=== PATIENT | female | born 2005 | race Caucasian/White ===

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

== ENCOUNTER 2023-01-19 18:36 | Emergency (ER) | payer OTHER, SELFPAY ==
[2023-01-19 18:43] VITALS: BP 120/70; PULSE 68; RESP 16; TEMP 36.6; O2SAT 99
--- NOTE | 2023-01-19 19:12 | ED.EYEPROB ---
HPI - Eye Problem General Chief complaint: Eye Problems Stated complaint: Right Eye Irritation Time Seen by Provider: 01/19/23 19:00 Source: patient, RN notes reviewed and old records reviewed Mode of arrival: ambulatory Limitations: no limitations History of Present Illness HPI Narrative: 17 year female who presents to [facility] care with complaints of right eye redness, irritation, and crusty drainage noted this morning. Patient denies any sinus congestion or any sinus drainage,denies any cough or any other ill symptoms with no fevers noted. Patient denies any acute pain to her right eye or any visual changes . chief complaint: eye redness Onset (ago): day(s) (today) Onset description: awoke with symptoms Location: right eye Eye Symptoms: redness, itching and discharge Severity scale (1-10): 1 Treatments Prior to Arrival: other (warm compress to wash eye) Related Data Home Medications Medication Instructions Recorded Confirmed escitalopram oxalate 10 mg tablet 20 mg DAILY 02/21/19 01/19/23 levonorgestrel 21 mcg/24 hours (8 See Rx Instructions .Route .COMPLEX 06/11/21 01/19/23 yrs) 52 mg intrauterine device (Mirena) methylphenidate HCl 36 mg 36 mg PO DAILY 12/07/22 01/19/23 tablet,extended release 24 hr Allergies Allergy/AdvReac Type Severity Reaction Status Date / Time cat dander AdvReac Mild Sneezing Verified 12/07/22 15:42 Review of Systems Review of Systems: CONSTITUTIONAL: Denies fever, chills, or sweats. EYES: Denies visual changes. Reports redness,, irritation, itching and crusting of her right eye. ENT: Denies rhinorrhea, congestion, sore throat, or otalgia. CARDIOVASCULAR: Denies chest pain, palpitations, or edema. RESPIRATORY: Denies cough or dyspnea. SKIN: Denies rash or itching. NEUROLOGIC: Denies headache All systems reviewed & are unremarkable except as noted in HPI and below PMFSH Past Medical History Medical History ADHD (attention deficit hyperactivity disorder) Anxiety and depression Surgical History Surgical History No significant past surgical history Social History Social History (Reviewed 12/07/22 @ 16:15 by FRANCIE Loya Smoking status: Never smoker Alcohol intake: never Substance use: never Living arrangements: with family Gender identity (if verbalized by the patient): Female Comments At time of signature, agree with nursing past medical, surgical, social and family history. There is no relevant family history pertinent to the presenting complaint Exam Narrative: GENERAL: Well-appearing, well-nourished, and in no acute distress. HEAD: Normocephalic, atraumatic. EYES: PERRLA and EOMI. Upper and lower eyelids unremarkable. No periorbital cellulitis noted. Sclera and conjunctivae injected right eye. Patient reports itching of right eye, denies any visual changes or any sharp pain right eye, mucoid drainage with crusting on lashes this morning. ENT: Nares clear, no rhinorrhea or epistaxis. Mucous membranes moist. NECK: Supple. no lymphadenopathy CHEST: Clear to auscultation. No respiratory distress. HEART: Regular rate and rhythm. No murmur heard. Normal peripheral pulses. SKIN: Warm, dry, no rash. NEURO: No focal deficits. Alert and oriented x3. Course Course Emergency Course: Patient is aware of diagnosis, understands and agrees to treatment plan. Anticipatory guidance given. Patient agrees to follow-up as directed and is aware of reasons to seek care at the emergency department. Portions of this record may have been created with voice recognition software Level of Care: Express Care Visit Vital Signs Vital signs: Vital Signs Temperature 36.6 C 01/19/23 18:43 Pulse Rate 68 01/19/23 18:43 Respiratory Rate 16 01/19/23 18:43 Blood Pressure 120/70 01/19/23 18:43 Pulse Oximetry 99 01/19/23 18:43 Oxygen De
== END 2023-01-19 19:25 | disposition home or self-care (01) ==
PROVIDERS: Emergency Provider Registered Nurse; PCP Pediatrics
DX: H10.9 Unspecified conjunctivitis (principal); F90.9 Attention-deficit hyperactivity disorder, unspecified type; F41.9 Anxiety disorder, unspecified; F32.A Depression, unspecified
CPT/HCPCS: 99213; G0463

== ENCOUNTER 2023-06-07 13:42 | Emergency (ER) | payer OTHER, SELFPAY ==
[2023-06-07 13:55] VITALS: BP 132/71; PULSE 104; RESP 18; TEMP 37.2; O2SAT 100
[2023-06-07 13:56] VITALS: BP 132/71; PULSE 104; RESP 18; TEMP 37.2; O2SAT 100
--- NOTE | 2023-06-07 14:24 | ED.URI ---
HPI - URI/Sore Throat General Chief Complaint: Upper Respiratory Infection Stated Complaint: Sinus Time Seen by Provider: 06/07/23 14:06 Source: patient, family (Mother) and RN notes reviewed Mode of arrival: ambulatory Limitations: no limitations History of Present Illness HPI Narrative: Patient presents today complaining of a 2 day history of cough, sore throat, nasal congestion, body aches, fever up to 102.5. Currently rates her pain 5/10 and has been taking ibuprofen and using cough drops with some relief. Patient was just back from a road trip where the friend in the car with her tested positive today for influenza A. Related Data Home Medications Medication Instructions Recorded Confirmed escitalopram oxalate 10 mg tablet 20 mg DAILY 02/21/19 06/07/23 levonorgestrel 21 mcg/24 hours (8 See Rx Instructions .Route .COMPLEX 06/11/21 06/07/23 yrs) 52 mg intrauterine device (Mirena) buspirone 10 mg tablet mg 06/07/23 methylphenidate HCl 27 mg mg PO 06/07/23 tablet,extended release 24 hr Allergies Allergy/AdvReac Type Severity Reaction Status Date / Time cat dander AdvReac Mild Sneezing Verified 06/07/23 13:55 Review of Systems Review of Systems: CONSTITUTIONAL: Denies chills, or sweats.+ body aches, fever EYES: Denies visual changes, redness, or discharge. ENT: Denies rhinorrhea, or otalgia.+ congestion, sore throat CARDIOVASCULAR: Denies chest pain, palpitations, or edema. RESPIRATORY: Denies dyspnea.+ cough GASTROINTESTINAL: Denies abdominal pain, nausea, vomiting, or diarrhea. GENITOURINARY: Denies dysuria or hematuria. SKIN: Denies rash, itching, or wounds. MUSCULOSKELETAL: Denies back pain, joint pain, or myalgia. NEUROLOGIC: Denies headache, numbness, tingling, or weakness. PSYCH: Denies depression or anxiety. [facility] Past Medical History Medical History ADHD (attention deficit hyperactivity disorder) Anxiety and depression Surgical History Surgical History No significant past surgical history Social History Social History Smoking status: Never smoker Alcohol intake: never Substance use: never Living arrangements: with family Gender identity (if verbalized by the patient): Female Comments At time of signature, I have reviewed and agree with nursing past medical, surgical, social and family history unless otherwise noted. Please see nursing chart for further information. There is no relevant family history pertinent to the presenting complaint Exam Narrative: GENERAL: Mildly ill-appearing, well-nourished, and in no acute distress. HEAD: Normocephalic, atraumatic. EYES: EOMI. No redness or drainage. Conjunctivae normal. ENT: Mucous membranes pink and moist. Nares clear. No rhinorrhea. TMs normal bilaterally. Throat mildly erythematous without edema or exudate. Uvula midline. NECK: Normal AROM. Supple. No lymphadenopathy. CHEST: No respiratory distress. Clear to auscultation. HEART: Regular rate and rhythm. No murmur appreciated. EXTREMITIES: Normal range of motion. No edema. SKIN: Warm, dry, no rash. Capillary refill normal. Normal skin turgor. NEURO: No focal deficits. Alert and oriented x3. Gait steady. PSYCH: Normal affect. No signs of depression or anxiety. Course Course Level of Care: Express Care Visit Vital Signs Vital signs: Vital Signs Temperature 99 F 06/07/23 13:55 Pulse Rate 104 H 06/07/23 13:55 Respiratory Rate 18 06/07/23 13:55 Blood Pressure 132/71 06/07/23 13:55 Pulse Oximetry 100 06/07/23 13:55 Oxygen Delivery Room Air 06/07/23 13:55 Temperature 99 F 06/07/23 13:56 Pulse Rate 104 H 06/07/23 13:56 Respiratory Rate 18 06/07/23 13:56 Blood Pressure 132/71 06/07/23 13:56 Pulse Oximetry 100 06/07/23 13:56 Oxygen De
== END 2023-06-07 14:18 | disposition home or self-care (01) ==
PROVIDERS: Emergency Provider Nurse Practitioner; PCP Pediatrics
DX: J10.1 Influenza due to other identified influenza virus with other respiratory manifestations (principal); F41.9 Anxiety disorder, unspecified; F32.A Depression, unspecified
CPT/HCPCS: 87804; 99213; G0463

== ENCOUNTER 2023-07-21 16:07 | Emergency (ER) | payer OTHER, SELFPAY ==
--- NOTE | 2023-07-21 16:09 | ED.EYEPROB ---
HPI - Eye Problem General Chief complaint: Eye Problems Stated complaint: Eye Irritation Time Seen by Provider: 07/21/23 16:56 Source: patient and RN notes reviewed Mode of arrival: ambulatory Limitations: no limitations History of Present Illness HPI Narrative: 18-year-old female presents with concern for right eye redness, irritation, drainage. Reports symptoms started yesterday. Denies cold symptoms. chief complaint: eye redness Related Data Home Medications Medication Instructions Recorded Confirmed escitalopram oxalate 10 mg tablet 20 mg DAILY 02/21/19 07/21/23 levonorgestrel 21 mcg/24 hr (up to See Rx Instructions .Route .COMPLEX 06/11/21 07/21/23 8 years) 52 mg intrauterine device (Mirena) buspirone 10 mg tablet 10 mg PO DAILY 06/07/23 07/21/23 methylphenidate HCl 27 mg 27 mg PO DAILY 06/07/23 07/21/23 tablet,extended release 24 hr Allergies Allergy/AdvReac Type Severity Reaction Status Date / Time cat dander AdvReac Mild Sneezing Verified 07/21/23 16:24 Review of Systems Review of Systems: CONSTITUTIONAL: Denies malaise, chills, sweats, or fever. EYES: Denies visual changes. Reports right eye redness, irritation, discharge. ENT: Denies rhinorrhea, congestion, sinus pain, otalgia or sore throat. SKIN: Denies rash or itching. NEUROLOGIC: Denies numbness, weakness, or headache. PSYCHIATRIC: Denies anxiety or depression. All systems reviewed & are unremarkable except as noted in HPI and below PMFSH Past Medical History Medical History ADHD (attention deficit hyperactivity disorder) Anxiety and depression Surgical History Surgical History No significant past surgical history Social History Social History Smoking status: Never smoker Alcohol intake: never Substance use: never Living arrangements: with family Gender identity (if verbalized by the patient): Female Comments At time of signature, agree with nursing past medical, surgical, social and family history. There is no relevant family history pertinent to the presenting complaint Exam Narrative: GENERAL: Well-appearing, well-nourished, and in no acute distress. HEAD: Normocephalic, atraumatic. EYES: PERRLA, sclera clear, and EOMI. No nystagmus. Eye sclera and conjunctivae mildly injected. Upper and lower eyelid unremarkable, no periorbital edema noted ENT: Nares clear, turbinates pink, no rhinorrhea or epistaxis. Mucous membranes moist. TM pearly [place] with sharp light reflex bilaterally; no tragal tenderness. NECK: Supple. CHEST: No respiratory distress. Speaks in full sentences. HEART: Regular rate and rhythm. SKIN: Warm, dry, no visible rash. NEURO: Alert and oriented x3. PSYCH: Normal mood and affect Course Course Emergency Course: Patient is aware of diagnosis, understands and agrees to treatment plan. Anticipatory guidance given. Patient agrees to follow-up as directed and is aware of reasons to seek care at the emergency department. Portions of this record may have been created with voice recognition software Level of Care: Express Care Visit Vital Signs Vital signs: Reviewed. MDM - Eye Problem MDM Narrative Medical decision making narrative: Consideration of the following conditions may be warranted for the presenting problem, they are not final diagnoses: Bacterial conjunctivitis, allergic conjunctivitis, viral conjunctivitis, foreign body, blepharitis, chalazion, hordeolum, corneal abrasion, preseptal cellulitis, orbital cellulitis. No evidence of proptosis, ophthalmoplegia, vision loss, pain with eye movement. Exam findings show no acute concerns or changes; patient is non-toxic appearing and is in no distress. Patient is appropriate for outpatient treatment and follow-up. Critical Care Time Critical Care Ti
[2023-07-21 16:15] VITALS: BP 125/70; PULSE 88; RESP 16; TEMP 36.6; O2SAT 100
== END 2023-07-21 17:06 | disposition home or self-care (01) ==
PROVIDERS: Emergency Provider Nurse Practitioner; PCP Pediatrics
DX: H10.9 Unspecified conjunctivitis (principal); F90.9 Attention-deficit hyperactivity disorder, unspecified type; F41.9 Anxiety disorder, unspecified; F32.A Depression, unspecified
CPT/HCPCS: 99213; G0463

== ENCOUNTER 2023-09-29 16:37 | Emergency (ER) | payer OTHER, SELFPAY ==
--- NOTE | 2023-09-29 16:40 | ED.EYEPROB ---
HPI - Eye Problem General Chief complaint: Eye Problems Stated complaint: right eye pain,itching,red Time Seen by Provider: 09/29/23 16:55 Source: patient and RN notes reviewed Mode of arrival: ambulatory Limitations: no limitations History of Present Illness HPI Narrative: 18-year-old female presents with concern for right eye irritation, itchiness, redness. Reports she has drainage and goop in the morning when she wakes up. Reports symptoms have been going on for 2 days. 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 She denies cold symptoms or vision changes MD chief complaint: eye redness Related Data Home Medications Medication Instructions Recorded Confirmed escitalopram oxalate 10 mg tablet 20 mg DAILY 02/21/19 09/29/23 levonorgestrel 21 mcg/24 hr (up to See Rx Instructions .Route .COMPLEX 06/11/21 09/29/23 8 years) 52 mg intrauterine device (Mirena) buspirone 10 mg tablet 10 mg PO DAILY 06/07/23 09/29/23 methylphenidate HCl 27 mg 27 mg PO DAILY 06/07/23 09/29/23 tablet,extended release 24 hr Allergies Allergy/AdvReac Type Severity Reaction Status Date / Time cat dander AdvReac Mild Sneezing Verified 09/29/23 16:48 Review of Systems Review of Systems: CONSTITUTIONAL: Denies malaise, chills, sweats, or fever. EYES: Denies visual changes. Reports right eye redness, irritation, discharge. ENT: Denies rhinorrhea, congestion, sinus pain, otalgia or sore throat. SKIN: Denies rash or itching. NEUROLOGIC: Denies numbness, weakness, or headache. PSYCHIATRIC: Denies anxiety or depression. All systems reviewed & are unremarkable except as noted in HPI and below [facility] Past Medical History Medical History ADHD (attention deficit hyperactivity disorder) Anxiety and depression Surgical History Surgical History No significant past surgical history Social History Social History Smoking status: Never smoker Alcohol intake: never Substance use: never Living arrangements: with family Gender identity (if verbalized by the patient): Female Comments At time of signature, agree with nursing past medical, surgical, social and family history. There is no relevant family history pertinent to the presenting complaint Exam Narrative: GENERAL: Well-appearing, well-nourished, and in no acute distress. HEAD: Normocephalic, atraumatic. EYES: PERRLA, sclera clear, and EOMI. No nystagmus. Right eye conjunctivae slightly injected. Upper and lower eyelid unremarkable, no periorbital edema noted ENT: Nares clear, turbinates pink, no rhinorrhea or epistaxis. Mucous membranes moist. TM pearly [place] with sharp light reflex bilaterally; no tragal tenderness. NECK: Supple. CHEST: No respiratory distress. Speaks in full sentences. HEART: Regular rate and rhythm. SKIN: Warm, dry, no visible rash. NEURO: Alert and oriented x3. PSYCH: Normal mood and affect Course Course Emergency Course: Patient is aware of diagnosis, understands and agrees to treatment plan. Anticipatory guidance given. Patient agrees to follow-up as directed and is aware of reasons to seek care at the emergency department. Portions of this record may have been created with voice recognition software Level of Care: Express Care Visit Vital Signs Vital signs: Reviewed. MDM - Eye Problem MDM Narrative Medical decision making narrative: Consideration of the following conditions may be warranted for the presenting problem, they are not final diagnoses: Bacterial conjunctivitis, allergic conjunctivitis, viral conjunctivitis, foreign body, blepharitis, chalazion, hordeolum, corneal abrasion, preseptal cellulitis, orbital cellulitis. No evidence of proptosis, ophthalmoplegia, vision loss, pain with eye movement. Exam findings show no acute concerns or changes; patient is n
[2023-09-29 16:51] VITALS: BP 99/68; PULSE 76; RESP 16; TEMP 37.2; O2SAT 100
== END 2023-09-29 17:08 | disposition home or self-care (01) ==
PROVIDERS: Emergency Provider Nurse Practitioner; PCP Pediatrics
DX: H10.9 Unspecified conjunctivitis (principal); F90.9 Attention-deficit hyperactivity disorder, unspecified type; F41.9 Anxiety disorder, unspecified; F32.A Depression, unspecified
CPT/HCPCS: 99213; G0463

== ENCOUNTER 2024-03-12 18:36 | Emergency (ER) | payer OTHER, SELFPAY ==
[2024-03-12 18:39] VITALS: BP 114/68; PULSE 95; RESP 18; TEMP 36.6; O2SAT 100
--- NOTE | 2024-03-12 19:12 | ED.URI ---
HPI - URI/Sore Throat General Chief Complaint: Upper Respiratory Infection Stated Complaint: Sore Throat/Rash Time Seen by Provider: 03/12/24 19:13 Source: patient Mode of arrival: ambulatory Limitations: no limitations History of Present Illness HPI Narrative: 18-year-old female presents with complaint of sore throat, white spots to throat, fatigue, body aches, chills, nausea for 2 days. Denies vomiting diarrhea. Afebrile. All systems reviewed and negative except as noted above. Related Data Home Medications ?Medication ?Instructions ?Recorded ?Confirmed ?Last Taken ?Type escitalopram oxalate 10 mg tablet 20 mg DAILY 02/21/19 09/29/23 Unknown History levonorgestrel (Mirena) See Rx Instructions .Route .COMPLEX 06/11/21 03/12/24 Unknown History buspirone 10 mg tablet 10 mg PO DAILY 06/07/23 03/12/24 Unknown History methylphenidate HCl 27 mg 27 mg PO DAILY 06/07/23 03/12/24 Unknown History tablet,extended release 24 hr Allergies Allergy/AdvReac Type Severity Reaction Status Date / Time cat dander AdvReac Mild Sneezing Verified 03/12/24 18:46 Review of Systems Review of Systems: CONSTITUTIONAL: Denies fever, chills, or sweats. EYES: Denies visual changes, redness, or discharge. ENT: Denies rhinorrhea, congestion . Reports sore throat. Denies otalgia. CARDIOVASCULAR: Denies chest pain, palpitations, or edema. RESPIRATORY: Denies cough or dyspnea. GASTROINTESTINAL: Denies abdominal pain, nausea, vomiting, or diarrhea. GENITOURINARY: Denies dysuria or hematuria. SKIN: Denies rash or itching. MUSCULOSKELETAL: Denies back pain, joint pain, or myalgia. NEUROLOGIC: Denies headache, numbness, or weakness. PSYCHIATRIC: Denies anxiety or depression. All other systems reviewed are negative, except as documented in HPI. [facility] Past Medical History Medical History ADHD (attention deficit hyperactivity disorder) Anxiety and depression Surgical History Surgical History No significant past surgical history Social History Social History Smoking status: Never smoker Alcohol intake: never Substance use: never Living arrangements: with family Gender identity (if verbalized by the patient): Female Comments At time of signature, agree with nursing past medical, surgical, social and family history. There is no relevant family history pertinent to the presenting complaint. Exam Narrative: GENERAL: This is a well-nourished, well-developed patient, in no apparent distress. HEAD: normocephalic, atraumatic. EYES: PERRL. Sclera clear/white. Vision is grossly intact. EARS: External ears normal, auditory canals clear and without drainage, TMs normal without perforation. Hearing grossly intact. NOSE: External nose normal with no obvious nasal discharge, nares without redness, no rhinorrhea. THROAT: Mucous membranes moist, erythema to posterior pharynx, tonsils 1+ bilaterally with erythema and exudates NECK: Neck supple, non-tender without lymphadenopathy, masses or thyromegaly. CARDIOVASCULAR: Regular rate and rhythm without murmurs, gallops, or rubs. RESPIRATORY: Clear to auscultation. Breath sounds equal bilaterally. No wheezes, rales, or rhonchi. SKIN: warm, Dry, intact with no suspicious lesions or rash, good texture and turgor. NEURO: awake, alert, and oriented to person, place and time. There were no obvious focal neurologic abnormalities. EXTREMITIES: No joint tenderness, effusion, or edema noted. Course Course Level of Care: Express Care Visit Vital Signs Vital signs: Vital Signs Temperature 36.6 C 03/12/24 18:39 Pulse Rate 95 03/12/24 18:39 Respiratory Rate 18 03/12/24 18:39 Blood Pressure 114/68 03/12/24 18:39 Pulse Oximetry 100 03/12/24 18:39 Oxygen Delivery Room Air 03/12/24 18:39 Temperature 36.6 C 03/12/24 18:39 Pulse Rate 95 03/12/24 18:39 Respiratory Rate 18 03/12/24 18:39 Blood Pressure 114/68 03/12/24 18:39 Pulse Oximetry 100 03/12/24 18:39 Oxygen Delivery Room Air 03/12/24 18:39 reviewed MDM - URI/Sore Throat MDM Narrative Medical decision making narrative: rapid strep negative. Strep culture ordered. Will treat patient with antibiotic due to patient's symptoms and exam findings. Patient agrees with plan of care. Patient requesting fluconazole, states antibiotics cause yeAST infection. Patient is aware of diagnosis, understands and agrees to treatment plan. Anticipatory guidance given. Patient agrees to follow-up as directed and is aware of reasons to seek care at the emergency department. Portions of this record may have been created with voice recognition software Discharge Plan Discharge Clinical Impression: Acute tonsillitis Qualifiers: Pharyngitis/tonsillitis etiology: unspecified etiology Qualified Code(s): J03.90 - Acute tonsillitis, unspecified Patient Disposition: Home, Self-Care Condition: Stable Instructions: Antibiotic Form, Tonsillitis (ED) Additional Instructions: Your strep test was negative today. Due to your symptoms and exam findings I am prescribing an antibiotic today. Take antibiotic as prescribed until gone. Change toothbrush after taking antibiotic for 24 hours. Take Tylenol or ibuprofen every 6-8 hours as needed for pain and fever. Drink plenty water and rest. Follow-up with your primary care physician if symptoms are not improving. Patient Language: Afghan Prescriptions: New cefdinir 300 mg capsule 300 mg PO Q12H 10 Days Qty: 20 0RF fluconazole 150 mg tablet 150 mg PO ONCE 1 Days Qty: 1 0RF No Action escitalopram oxalate 10 mg tablet 20 mg DAILY Mirena 20 mcg/24 hours (7 yrs) 52 mg Intrauterine Device See Rx Instructions .ROUTE .COMPLEX Rx Instructions: 20 mcg intrauterinely buspirone 10 mg tablet 10 mg PO DAILY methylphenidate HCl 27 mg tablet extended release 24hr 27 mg PO DAILY Follow-up/Referrals: Michael,MD Perez [Primary Care Provider] - Stand Alone Forms: Work/School Release IP Time of Disposition: 19:21
== END 2024-03-12 19:23 | disposition home or self-care (01) ==
PROVIDERS: Emergency Provider Nurse Practitioner Family; PCP Pediatrics
DX: J03.90 Acute tonsillitis, unspecified (principal); Z79.899 Other long term (current) drug therapy
CPT/HCPCS: 87081; 99213; G0463

== ENCOUNTER 2024-03-20 16:59 | Emergency (ER) | payer OTHER, SELFPAY ==
--- NOTE | 2024-03-20 17:10 | ED.FEMALEGU ---
HPI - Female Genitourinary General Chief complaint: Urogenital-Female Stated complaint: poss std exposure Source: patient, RN notes reviewed and old records reviewed Mode of arrival: ambulatory Limitations: no limitations History of Present Illness HPI Narrative: Patient presents with concerns for chlamydia. She reports not she got a phone call from a sexual partner telling her that he was positive for chlamydia and that she needs to be tested. Patient reports that she is asymptomatic. Related Data Home Medications ?Medication ?Instructions ?Recorded ?Confirmed ?Last Taken ?Type escitalopram oxalate 10 mg tablet 20 mg DAILY 02/21/19 09/29/23 Unknown History levonorgestrel (Mirena) See Rx Instructions .Route .COMPLEX 06/11/21 03/12/24 Unknown History buspirone 10 mg tablet 10 mg PO DAILY 06/07/23 03/12/24 Unknown History methylphenidate HCl 27 mg 27 mg PO DAILY 06/07/23 03/12/24 Unknown History tablet,extended release 24 hr Allergies Allergy/AdvReac Type Severity Reaction Status Date / Time cat dander AdvReac Mild Sneezing Verified 03/20/24 17:30 Review of Systems Review of Systems: All systems reviewed & are unremarkable except as noted in HPI and below Constitutional: Constitutional: Reports no additional constitutional complaints ENT: Reports system reviewed and no additional complaints, except as documented Cardiovascular: Cardiovascular: Reports no additional cardiovascular complaints Respiratory: Respiratory: Reports no additional respiratory complaints Gastrointestinal: Gastrointestinal: Reports no additional gastrointestinal complaints [facility] Past Medical History Medical History ADHD (attention deficit hyperactivity disorder) Anxiety and depression Surgical History Surgical History No significant past surgical history Social History Social History Smoking status: Never smoker Alcohol intake: never Substance use: never Living arrangements: with family Gender identity (if verbalized by the patient): Female Comments At the time of my signature, I reviewed and agree with the nursing past medical, surgical, social, and family history. There is no relevant family history pertinent to the patient complaint. Exam Const: General: cooperative, no acute distress, alert and awake Orientation/consciousness: oriented to person, oriented to place and oriented to time HENMT: Head: normal to inspection Resp: Effort & Inspection: normal respiratory effort and able to speak in complete sentences Auscultation: clear to auscultation bilaterally, no crackles, no rales, no rhonchi and no wheezes Cardio: Palpation: normal PMI Rate: regular rate Rhythm: regular rhythm Heart sounds: S1 normal heart sound present and S2 normal heart sound present Neuro: General: oriented to person, oriented to place and oriented to time Cranial nerves: Yes CN's II-XII intact bilaterally Psych: Appearance: grossly normal Thought process: Normal thought process present Insight: Good insight present (Psych) Judgement: Good judgement present (Psych) Course Course Level of Care: Express Care Visit Vital Signs Vital signs: Reviewed MDM - Female Genitourinary MDM Narrative Medical decision making narrative: Patient was unable to urinate. Will treat for chlamydia given her known exposure. She was advised to follow-up for further testing. Discharge instructions reviewed with patient, as well as provided in writing per nursing staff. The instructions also include specific and strict return/GO TO THE ER as well as f/u information. All questions have been answered, and the patient deny any further questions with discharge and discharge plan. Some parts of this dictation were generated by voice recognition software and may contain typographical and/or grammatical inaccuracies. Differential Diagnosis Differential diagnosis: Likely urinary tract infection, bacterial vaginosis and vaginitis Medical Records Attestation: I reviewed the patient's medical records. Discharge Plan Discharge Clinical Impression: Chlamydia Patient Disposition: Home, Self-Care Condition: Stable Instructions: Antibiotic Form, Chlamydia (ED) Patient Language: Persian Prescriptions: New doxycycline hyclate 100 mg capsule 100 mg PO BID Qty: 14 0RF No Action escitalopram oxalate 10 mg tablet 20 mg DAILY Mirena 20 mcg/24 hours (7 yrs) 52 mg Intrauterine Device See Rx Instructions .ROUTE .COMPLEX Rx Instructions: 20 mcg intrauterinely buspirone 10 mg tablet 10 mg PO DAILY methylphenidate HCl 27 mg tablet extended release 24hr 27 mg PO DAILY cefdinir 300 mg capsule 300 mg PO Q12H 10 Days Qty: 20 0RF fluconazole 150 mg tablet 150 mg PO ONCE 1 Days Qty: 1 0RF Follow-up/Referrals: Michael,MD Perez [Primary Care Provider] -
[2024-03-20 17:17] VITALS: BP 119/73; PULSE 77; RESP 16; TEMP 35.9; O2SAT 99
== END 2024-03-20 17:35 | disposition home or self-care (01) ==
PROVIDERS: Emergency Provider Nurse Practitioner Family; PCP Pediatrics
DX: A74.9 Chlamydial infection, unspecified (principal); F90.9 Attention-deficit hyperactivity disorder, unspecified type; F41.9 Anxiety disorder, unspecified; F32.A Depression, unspecified
CPT/HCPCS: 99213; G0463

== ENCOUNTER 2024-03-22 16:06 | Emergency (ER) | payer OTHER, SELFPAY ==
--- NOTE | 2024-03-22 16:22 | ED.FEMALEGU ---
HPI - Female Genitourinary General Chief complaint: Urogenital-Female Stated complaint: STD test Time Seen by Provider: 03/22/24 16:22 Source: patient Mode of arrival: ambulatory Limitations: no limitations History of Present Illness HPI Narrative: Katie is a 18-year-old female patient presenting to the clinic today with complaints STI. She reports she had a call from a past partner who tested positive for chlamydia. She denies any vaginal discharge, abdominal pain, odor, or back pain. She denies any urinary symptoms. Would like to be tested for STIs. She was in the clinic 2 days ago and was unable to give a urine sample at that time and the nurse practitioner at that time went ahead and treated her for chlamydia and give her doxycycline but the patient has not started the medication yet. Related Data Home Medications ?Medication ?Instructions ?Recorded ?Confirmed ?Last Taken ?Type escitalopram oxalate 10 mg tablet 20 mg DAILY 02/21/19 09/29/23 Unknown History levonorgestrel (Mirena) See Rx Instructions .Route .COMPLEX 06/11/21 03/12/24 Unknown History buspirone 10 mg tablet 10 mg PO DAILY 06/07/23 03/12/24 Unknown History methylphenidate HCl 27 mg 27 mg PO DAILY 06/07/23 03/12/24 Unknown History tablet,extended release 24 hr Allergies Allergy/AdvReac Type Severity Reaction Status Date / Time cat dander AdvReac Mild Sneezing Verified 03/22/24 16:28 Review of Systems Review of Systems: Pertinent positives per HPI. Patient denies any fever, chills, rash, headache, visual changes, dizziness, cough, runny nose, sore throat, shortness of breath, chest pain, palpitations, nausea, vomiting, diarrhea, constipation, abdominal pain, or any urinary issues. [facility] Past Medical History Medical History ADHD (attention deficit hyperactivity disorder) Anxiety and depression Surgical History Surgical History No significant past surgical history Social History Social History Smoking status: Never smoker Alcohol intake: never Substance use: never Living arrangements: with family Gender identity (if verbalized by the patient): Female Comments At the time of my signature, I reviewed and agree with the nursing past medical, surgical, social, and family history. There is no relevant family history pertinent to the patient complaint. Exam Narrative: General: Well-developed, well nourished, in no apparent distress. Head: Normocephalic, atraumatic. Cardio: Regular rate and rhythm, s1 and s2 normal, no murmur appreciated. Resp: Clear to auscultation bilaterally, no rhonchi, rales, wheezing or rubs. Abdomen: Soft, pliable, bowel sounds present in all quadrants, non-tender to palpation, no organomegly, no CVAT tenderness. : Deferred Course Course Emergency Course: Portions of this record may have been created with voice recognition software. Level of Care: Express Care Visit Vital Signs Vital signs: Vital Signs Temperature 36.3 C L 03/22/24 16:27 Pulse Rate 74 03/22/24 16:27 Respiratory Rate 16 03/22/24 16:27 Blood Pressure 133/81 03/22/24 16:27 Pulse Oximetry 100 03/22/24 16:27 Oxygen Delivery Room Air 03/22/24 16:27 Temperature 36.3 C L 03/22/24 16:27 Pulse Rate 74 03/22/24 16:27 Respiratory Rate 16 03/22/24 16:27 Blood Pressure 133/81 03/22/24 16:27 Pulse Oximetry 100 03/22/24 16:27 Oxygen Delivery Room Air 03/22/24 16:27 Vital signs reviewed MDM - Female Genitourinary MDM Narrative Medical decision making narrative: At the time of visit patient is resting comfortably on the exam table. Patient appears to be nontoxic. Labs: GC and Trichomonas urine testing was sent to the lab Plan: Patient is here for STI testing. She had possible exposure to chlamydia. She already has a prescription for doxycycline but has not started it yet as she wanted to be tested prior to treatment. Was able to provide a urine sample and this was sent to the lab for gonorrhea, chlamydia, and Trichomonas testing. Supportive measures were discussed with the patient and they voiced understanding discharge instructions and agrees to treatment plan. Return precautions reviewed Differential Diagnosis Differential diagnosis: Likely bacterial vaginosis, trichomoniasis, vaginitis and other (Chlamydia, STI) Discharge Plan Discharge Clinical Impression: Exposure to chlamydia, Encounter for screening examination for sexually transmitted infection Patient Disposition: Home, Self-Care Condition: Stable Instructions: Antibiotic Form, Chlamydia (ED), Sexually Transmitted Diseases (ED), Safe Sex Practices (ED) Additional Instructions: Urinalysis was sent to test for chlamydia, gonorrhea, and Trichomonas. We have tested/treated you for STIs in the clinic today. Avoid any sexual activity- includes oral, anal, or vaginal intercourse until you get results back and have completed any additional recommended treatment regimens. May call Express care location that you had testing completed for results in that time frame. We will contact you if testing is positive and make sure your treatment was appropriate for the type of STI. If symptoms worsen after treatment recommend reevaluation with your PCP or Express care. Patient Language: Khmer Prescriptions: No Action escitalopram oxalate 10 mg tablet 20 mg DAILY Mirena 20 mcg/24 hours (7 yrs) 52 mg Intrauterine Device See Rx Instructions .ROUTE .COMPLEX Rx Instructions: 20 mcg intrauterinely doxycycline hyclate 100 mg capsule 100 mg PO BID Qty: 14 0RF buspirone 10 mg tablet 10 mg PO DAILY methylphenidate HCl 27 mg tablet extended release 24hr 27 mg PO DAILY cefdinir 300 mg capsule 300 mg PO Q12H 10 Days Qty: 20 0RF fluconazole 150 mg tablet 150 mg PO ONCE 1 Days Qty: 1 0RF Follow-up/Referrals: Michael,MD Perez [Primary Care Provider] - Time of Disposition: 16:26 Quality NIHSS Nursing Documentation ED NIHSS nursing documentation: reviewed/agree
[2024-03-22 16:27] VITALS: BP 133/81; PULSE 74; RESP 16; TEMP 36.3; O2SAT 100
[2024-03-22 19:40] LABS: Trichomonas Vag PCR NOT DETECTED (NOT DETECTE)
[2024-03-22 20:03] LABS: Chlamydia trachomatis NOT DETECTED (NOT DETECTE); Neisseria gonorrhoeae PCR NOT DETECTED (NOT DETECTE)
== END 2024-03-22 16:32 | disposition home or self-care (01) ==
PROVIDERS: Emergency Provider Nurse Practitioner Family; PCP Pediatrics
DX: Z20.2 Contact with and (suspected) exposure to infections with a predominantly sexual mode of transmission (principal); F90.9 Attention-deficit hyperactivity disorder, unspecified type; F41.9 Anxiety disorder, unspecified; F32.A Depression, unspecified
CPT/HCPCS: 87491; 87591; 87661; 99213; G0463

== ENCOUNTER 2024-08-21 12:33 | Emergency (ER) | payer OTHER, SELFPAY ==
--- NOTE | 2024-08-21 12:37 | ED.URI ---
HPI - URI/Sore Throat General Chief Complaint: Upper Respiratory Infection Stated Complaint: SORE THROAT/SWOLLEN Time Seen by Provider: 08/21/24 12:54 Source: patient, RN notes reviewed and old records reviewed Mode of arrival: ambulatory Limitations: no limitations History of Present Illness HPI Narrative: 19-year-old female presents to the [facility] with complaints of a sore throat since last night. Has taken ibuprofen. Denies any other symptoms. Is maintaining own secretions. Related Data Home Medications ?Medication ?Instructions ?Recorded ?Confirmed ?Last Taken ?Type escitalopram oxalate 10 mg tablet 20 mg DAILY 02/21/19 09/29/23 Unknown History levonorgestrel (Mirena) See Rx Instructions .Route .COMPLEX 06/11/21 03/12/24 Unknown History buspirone 10 mg tablet 10 mg PO DAILY 06/07/23 03/12/24 Unknown History methylphenidate HCl 27 mg 27 mg PO DAILY 06/07/23 03/12/24 Unknown History tablet,extended release 24 hr Allergies Allergy/AdvReac Type Severity Reaction Status Date / Time cat dander AdvReac Mild Sneezing Verified 08/21/24 12:37 Review of Systems Review of Systems: All systems reviewed & are unremarkable except as noted in HPI and below Constitutional: Constitutional: Reports no additional constitutional complaints ENT: Reports as per HPI and Reports sore throat Cardiovascular: Cardiovascular: Reports no additional cardiovascular complaints, Denies chest pain and Denies dyspnea Respiratory: Respiratory: Reports no additional respiratory complaints, Denies chest congestion, Denies cough and Denies dyspnea Musculoskeletal: Musculoskeletal: Reports no additional musculoskeletal complaints Integumentary/Breasts: Skin/Breast: Reports system reviewed and no additional complaints, except as docu PMFSH Past Medical History Medical History ADHD (attention deficit hyperactivity disorder) Anxiety and depression Surgical History Surgical History No significant past surgical history Social History Social History Smoking status: Never smoker Alcohol intake: never Substance use: never Living arrangements: with family Gender identity (if verbalized by the patient): Female Comments At the time of my signature, I reviewed and agree with the nursing past medical, surgical, social, and family history. There is no relevant family history pertinent to the patient complaint. Exam Const: General: cooperative, no acute distress, well developed, alert, tired appearing, uncomfortable and well nourished Nutritional Appearance: well nourished Orientation/consciousness: patient oriented x3 Limitations: no limitations HENMT: Head: normal to inspection Ears: hearing grossly normal bilaterally, external ears normal, EAC's normal, mastoids normal, no periauricular adenopathy and TM abnormal with fluid behind the TM bilateral; not bulging and not erythematous Face/Nose/Sinus: Normal external nose present, Normal nares present and No nasal discharge present Face and sinus: normal facial exam, sinuses nontender and face symmetric Mouth: Yes Normal oral and palatal mucosa present, Yes lip normal, Yes tongue normal and Yes moist mucous membranes Throat: uvula midline, abnormal tonsil bilateral erythema, exudates and hypertrophy 2+ and no uvular edema Eyes: General: appearance normal, both eyes and all related structures Alignment and Position: alignment normal Neck: Neck: normal visual inspection, full ROM, no meningeal signs and lymphadenopathy (Bilateral submandibular) Chest: Chest palpation & inspection: normal inspection of the chest Resp: Effort & Inspection: normal respiratory effort and able to speak in complete sentences Auscultation: clear to auscultation bilaterally, no crackles, no rales, no rhonchi and no wheezes Cardio: Rate: regular rate Skin: General skin exam: normal color and no rashes or lesions noted Neuro: General: patient oriented x3, gait normal, moves all extremities and no meningeal signs Cognition (Neuro): normal cognition Speech: normal speech Gait exam (Neuro): Normal gait present Extrem: General: normal to inspection, full ROM, capillary refill normal and normal gait Psych: Appearance: grossly normal and well kempt Mental Status: mental status grossly normal Speech and movement: Normal speech and movement present and Clear speech present Affect: normal affect Attitude: cooperative Course Course Level of Care: Express Care Visit Vital Signs Vital signs: Vital Signs Temperature 99.8 F H 08/21/24 12:40 Pulse Rate 120 H 08/21/24 12:40 Respiratory Rate 16 08/21/24 12:40 Blood Pressure 110/62 08/21/24 12:40 Pulse Oximetry 100 08/21/24 12:40 Temperature 99.8 F H 08/21/24 12:40 Pulse Rate 120 H 08/21/24 12:40 Respiratory Rate 16 08/21/24 12:40 Blood Pressure 110/62 08/21/24 12:40 Pulse Oximetry 100 08/21/24 12:40 Reviewed MDM - URI/Sore Throat MDM Narrative Medical decision making narrative: Patient sitting in exam. Patient is nontoxic, vitals are stable. Patient presents with sore throat since last night. Piatt and strep were negative, will culture. Due to erythema, exudate and swelling as well as lymphadenopathy, will cover with antibiotic Augmentin sent to pharmacy Patient appropriate for outpatient treatment with close follow-up Discharge instructions reviewed with patient, as well as provided in writing per nursing staff. The instructions also include specific and strict return/GO TO THE ER as well as f/u information. All questions have been answered, and the patient deny any further questions with discharge and discharge plan. Some parts of this dictation were generated by voice recognition software and may contain typographical and/or grammatical inaccuracies. Differential Diagnosis Differential diagnosis: Likely upper respiratory infection, otitis media, sinusitis, viral infection, bronchitis, influenza and pharyngitis Lab Data Labs: Lab Results 08/21/24 Range/Units 12:48 POC Monoscreen Negative (Negative) POC Grp A Strep Screen Negative (Negative) Reviewed Critical Care Time Critical Care Time Critical Care Time: No Discharge Plan Discharge Clinical Impression: Tonsillitis with exudate Patient Disposition: Home Condition: Stable Instructions: Antibiotic Form, Tonsillitis (ED) Additional Instructions: After 24-48 hours on antibiotics, Throw the toothbrush away, start using a new one. Please be sure to wash bed linens especially pillow cases. Repeat once you finish the antibiotics. Do not share drinks. Take Motrin alternating with Tylenol for pain and fever alternating every 4 hours. Increase fluids, avoid caffeine. Give plenty of water, juice, Gatorade, Pedialyte, ice pops in Jell-O Follow up with Primary provider if not getting better this week For new or worsening symptoms go directly to the emergency room Patient Language: Tunisian Prescriptions: No Action escitalopram oxalate 10 mg tablet 20 mg DAILY Mirena 20 mcg/24 hours (7 yrs) 52 mg Intrauterine Device See Rx Instructions .ROUTE .COMPLEX Rx Instructions: 20 mcg intrauterinely buspirone 10 mg tablet 10 mg PO DAILY methylphenidate HCl 27 mg tablet extended release 24hr 27 mg PO DAILY Follow-up/Referrals: Michael,MD Perez [Primary Care Provider] - Stand Alone Forms: Work/School Release IP Time of Disposition: 13:34
[2024-08-21 12:40] VITALS: BP 110/62; PULSE 120; RESP 16; TEMP 37.7; O2SAT 100
[2024-08-21 13:03] LABS: EDSTREPNEGPOS1 Negative (Negative)
[2024-08-21 15:15] LABS: EDMONONEGPOS Negative (Negative)
== END 2024-08-21 13:38 | disposition home or self-care (01) ==
PROVIDERS: Emergency Provider Nurse Practitioner; PCP Pediatrics
DX: J03.90 Acute tonsillitis, unspecified (principal); F41.9 Anxiety disorder, unspecified; F32.A Depression, unspecified; F90.9 Attention-deficit hyperactivity disorder, unspecified type
CPT/HCPCS: 36416; 86308; 87081; 87880; 99213; G0463

== ENCOUNTER 2024-12-01 12:23 | Emergency (ER) | payer OTHER, SELFPAY ==
[2024-12-01 12:31] VITALS: BP 121/71; PULSE 111; RESP 18; TEMP 37; O2SAT 100
[2024-12-01 12:54] LABS: EDSTREPNEGPOS1 Negative (Negative)
--- NOTE | 2024-12-01 13:23 | ED_ITS ---
HPI - URI/Sore Throat General Chief Complaint: Upper Respiratory Infection Stated Complaint: Sore Throat Time Seen by Provider: 12/01/24 12:35 Source: patient and RN notes reviewed Mode of arrival: ambulatory Limitations: no limitations History of Present Illness HPI Narrative: 19-year-old female presents to the [facility] complaining of sore throat for last 3 days. Patient denies any difficulty clearing secretions, difficulty swallowing, fevers, body aches, chills, nausea, vomiting, diarrhea, cough, congestion, runny nose, earache, or any other symptoms. Patient taking Tylenol and ibuprofen up with the pain. Patient said she is post is seen ENT for recurrent strep throat. Related Data Home Medications ?Medication ?Instructions ?Recorded ?Confirmed ?Last Taken ?Type escitalopram oxalate 10 mg tablet 20 mg DAILY 02/21/19 09/29/23 Unknown History levonorgestrel (Mirena) See Rx Instructions .Route . COMPLEX 06/11/21 03/12/24 Unknown History buspirone 10 mg tablet 10 mg PO DAILY 06/07/2302/21 Unknown History methylphenidate HCl 27 mg 27 mg PO DAILY 06/07/2302/21 Unknown History tablet,extended release 24 hr Allergies Allergy/AdvReac Type Severity Reaction Status Date / Time cat dander AdvReac Mild Sneezing Verified 12/01/24 12:25 Review of Systems Review of Systems: CONSTITUTIONAL: Denies fever, chills, or sweats. EYES: Denies visual changes, redness, or discharge. ENT: Denies rhinorrhea, congestion, or otalgia. Positive for throat. CARDIOVASCULAR: Denies chest pain, palpitations, or edema. RESPIRATORY: Denies cough or dyspnea. GASTROINTESTINAL: Denies abdominal pain, nausea, vomiting, or diarrhea. GENITOURINARY: Denies dysuria or hematuria. SKIN: Denies rash or itching. MUSCULOSKELETAL: Denies back pain, joint pain, or myalgia. NEUROLOGIC: Denies headache, numbness, or weakness. PSYCHIATRIC: Denies anxiety or depression. All other systems reviewed are negative, except as documented in HPI. [facility] Past Medical History Medical History ADHD (attention deficit hyperactivity disorder) Anxiety and depression Surgical History Surgical History No significant past surgical history Social History Social History Smoking status: Never smoker Alcohol intake: never Substance use: never Living arrangements: with family Gender identity (if verbalized by the patient): Female Comments At the time of my signature, I reviewed and agree with the nursing past medical, surgical, social, and family history. There is no relevant family history pertinent to the patient complaint. Exam Narrative: GENERAL: This is a well-nourished, well-developed adult, in no apparent distress. They are non ill-appearing, nontoxic appearing. HEAD: normocephalic, atraumatic. EYES: Sclera clear/white. Conjunctiva normal. Vision is grossly intact. Extraocular movements intact EARS: External ears normal, auditory canals clear and without drainage, TMs normal without perforation. Hearing grossly intact. NOSE: External nose normal with no obvious nasal discharge, nasal turbinates without redness, no rhinorrhea. THROAT: Mucous membranes moist, posterior pharynx erythematous with cobblestone do not apparent. Tonsils erythematous and 2+. Uvula midline. NECK: Neck supple, non-tender without lymphadenopathy, masses or thyromegaly. CARDIOVASCULAR: Regular rate and rhythm without murmurs, gallops, or rubs. RESPIRATORY: Clear to auscultation. Breath sounds equal bilaterally. No wheezes, rales, or rhonchi. SKIN: warm, Dry, intact with no suspicious lesions or rash, good texture and turgor. NEURO: awake, alert, and oriented to person, place and time. There were no obvious focal neurologic abnormalities. EXTREMITIES: No joint tenderness, effusion, or edema noted. BACK: Nontender without deformity. No CVA tenderness. Course Course Emergency Course: Portions of this record may have been created with voice recognition software Level of Care: Express Care Visit Vital Signs Vital signs: Vital Signs Temperature 98.6 F 12/01/24 12:31 Pulse Rate 111 H 12/01/24 12:31 Respiratory Rate 18 12/01/24 12:31 Blood Pressure 121/71 12/01/24 12:31 Pulse Oximetry 100 12/01/24 12:31 Oxygen Delivery Room Air 12/01/24 12:31 Temperature 98.6 F 12/01/24 12:31 Pulse Rate 111 H 12/01/24 12:31 Respiratory Rate 18 12/01/24 12:31 Blood Pressure 121/71 12/01/24 12:31 Pulse Oximetry 100 12/01/24 12:31 Oxygen Delivery Room Air 12/01/24 12:31 Reviewed MDM - URI/Sore Throat MDM Narrative Medical decision making narrative: Rapid strep negative. A throat culture is pending. Historically patient has been treated with antibiotics given normal presentation with throat cultures being negative for group a strep. Patient reports antibiotic therapy rapidly improved her symptoms. Patient denies any concerns for STIs or STDs. It is unclear for group a strep is the culprit of patient's pharyngitis. Through shared decision making with patient she has decided to wait for culture results prior to any antibiotic therapy. This may be a viral pharyngitis. Informed patient this throat culture wall also assess for non group a strep organisms. Discussed physical exam findings. Advised supportive measures and signs/symptoms to go to the ER. Pt is appropriate for outpt treatment and f/u. Differential Diagnosis Differential diagnosis: Likely upper respiratory infection, viral infection and pharyngitis Lab Data Attestation: I reviewed the patient's lab results. Labs: Lab Results 12/01/24 Range/Units 12:52 POC Grp A Strep Screen Negative (Negative) Critical Care Time Critical Care Time Critical Care Time: No Discharge Plan Discharge Clinical Impression: Pharyngitis Qualifiers: Pharyngitis/tonsillitis etiology: unspecified etiology Qualified Code(s): J02.9 - Acute pharyngitis, unspecified Patient Disposition: Home Condition: Stable Instructions: Antibiotic Form, Pharyngitis (ED) Additional Instructions: Your rapid strep swab was negative today at [facility]. You will be notified in a few days if the culture comes back positive for strep, and appropriate antibiotics will be called in for you at that time. Your symptoms are likely due to a viral illness, which is not treated with antibiotics. Viral symptoms can be present for up to 10-14 days. Take Tylenol or ibuprofen as needed for fever or pain. Follow instructions on the bottle for dosing. Rest and stay hydrated. Follow up with your PCP in 3-5 days if symptoms are not improving. Go to the ER immediately if you developed difficulty breathing or swallowing Patient Language: Kinyarwanda Prescriptions: No Action escitalopram oxalate 10 mg tablet 20 mg DAILY Mirena 20 mcg/24 hours (7 yrs) 52 mg Intrauterine Device See Rx Instructions .ROUTE .COMPLEX Rx Instructions: 20 mcg intrauterinely buspirone 10 mg tablet 10 mg PO DAILY methylphenidate HCl 27 mg tablet extended release 24hr 27 mg PO DAILY Follow-up/Referrals: Michael,MD Perez [Primary Care Provider, Unknown] Stand Alone Forms: Work/School Release IP Time of Disposition: 12:47
== END 2024-12-01 12:54 | disposition home or self-care (01) ==
PROVIDERS: PCP Pediatrics
DX: J02.9 Acute pharyngitis, unspecified (principal); F90.9 Attention-deficit hyperactivity disorder, unspecified type; F41.9 Anxiety disorder, unspecified; F32.A Depression, unspecified
CPT/HCPCS: 87081; 87880; 99213; G0463

== ENCOUNTER 2025-01-19 17:58 | Emergency (ER) | payer OTHER, SELFPAY ==
--- NOTE | 2025-01-19 18:01 | ED_ITS ---
HPI - Female Genitourinary General Chief complaint: Urogenital-Female Stated complaint: UTI/Vaginal Problems Time Seen by Provider: 01/19/25 18:43 Source: patient Mode of arrival: ambulatory Limitations: no limitations History of Present Illness HPI Narrative: Patient is a 19-year-old female who presents with frequent urination and pain with urination for 3 days. Also concern for possible yeast or BV due to vaginal itching and slight odor. Denies any vaginal discharge or concern for STI. Denies any fever, chills, nausea, vomiting, diarrhea, low back pain. MD elicited complaint: dysuria Related Data Home Medications ?Medication ?Instructions ?Recorded ?Confirmed ?Last Taken ?Type escitalopram oxalate 10 mg tablet 20 mg PO DAILY 02/2109/29/23 Unknown History buspirone 10 mg tablet 10 mg PO DAILY 06/07/2302/21 Unknown History methylphenidate HCl 27 mg 27 mg PO DAILY 06/07/2302/21 Unknown History tablet,extended release 24 hr Bacillus coagulans-inulin 1 cap PO 01/19/25 Unknown H istory billion cell-250 mg capsule (Probiotic with Prebiotic) Allergies Allergy/AdvReac Type Severity Reaction Status Date / Time cat dander AdvReac Mild Sneezing Verified 01/19/25 18:27 Review of Systems Review of Systems: All systems reviewed & are unremarkable except as noted in HPI and below Constitutional: Constitutional: Denies chills, Denies fever(s), Denies headache(s), Denies malaise and Denies weakness Eyes: Eyes: Denies change in vision, Denies eye discharge and Denies irritation ENT: Denies otalgia, Denies headache(s), Denies nasal congestion, Denies nasal discharge, Denies sinus pain and Denies sore throat Cardiovascular: Cardiovascular: Denies chest pain, Denies edema, Denies palpitations and Denies dyspnea Respiratory: Respiratory: Denies cough and Denies dyspnea Gastrointestinal: Gastrointestinal: Denies abdominal pain, Denies diarrhea, Denies nausea and Denies vomiting Genitourinary: Genitourinary: Denies hematuria, Denies nocturia, Reports dysuria, Denies flank pain, Denies urinary urgency, Reports vaginal odor and Reports vaginal pruritus Musculoskeletal: Musculoskeletal: Denies back pain and Denies numbness Integumentary/Breasts: Skin/Breast: Denies pruritus and Denies rash Neurologic: Denies headache(s), Denies numbness and Denies weakness Psychiatric: Psychiatric: Reports no additional psychiatric complaints Endocrine: Endocrine: Denies palpitations PMFSH Past Medical History Medical History ADHD (attention deficit hyperactivity disorder) Anxiety and depression Surgical History Surgical History No significant past surgical history Social History Social History Smoking status: Never smoker Alcohol intake: never Substance use: never Living arrangements: with family Gender identity (if verbalized by the patient): Female Comments At time of signature, agree with nursing past medical, surgical, social and family history. There is no relevant family history pertinent to the presenting complaint. Exam Const: General: cooperative, healthy appearing, comfortable, no acute distress and well nourished Nutritional Appearance: well nourished Orientation/consciousness: patient oriented x3 HENMT: Head: normocephalic and atraumatic Ears: external ears normal Face/Nose/Sinus: Normal external nose present, Normal nares present and normal facial exam Face and sinus: normal facial exam Eyes: General: appearance normal, both eyes and all related structures Pupils: Equal, round and reactive pupils present EOM: EOMs intact bilaterally Neck: Neck: normal visual inspection, full ROM and supple Chest: Chest palpation & inspection: normal inspection of the chest Resp: Effort & Inspection: normal respiratory effort and able to speak in complete sentences Cardio: Rate: tachycardic Rhythm: regular rhythm GI: Inspection: normal to inspection GI Palp: No abdominal tenderness and Yes Soft to palpation : General: Yes no CVA tenderness Back/Spine/Pelvis: Back: no CVA tenderness Skin: General skin exam: normal color and no rashes or lesions noted Neuro: General: patient oriented x3 and moves all extremities Cranial nerves: Yes Equal, round and reactive pupils present Extrem: General: normal to inspection and full ROM Psych: Appearance: grossly normal and well kempt Course Course Emergency Course: Patient is aware of diagnosis, understands and agrees to treatment plan. Anticipatory guidance given. Patient agrees to follow-up as directed and is aware of reasons to seek care at the emergency department. Portions of this record may have been created with voice recognition software Level of Care: Express Care Visit Vital Signs Vital signs: Vital Signs Temperature 36.9 C 01/19/25 18:05 Pulse Rate 106 H 01/19/25 18:05 Respiratory Rate 18 01/19/25 18:05 Blood Pressure 125/66 01/19/25 18:05 Pulse Oximetry 100 01/19/25 18:05 Oxygen Delivery Room Air 01/19/25 18:05 Temperature 36.9 C 01/19/25 18:05 Pulse Rate 106 H 01/19/25 18:05 Respiratory Rate 18 01/19/25 18:05 Blood Pressure 125/66 01/19/25 18:05 Pulse Oximetry 100 01/19/25 18:05 Oxygen Delivery Room Air 01/19/25 18:05 Reviewed MDM - Female Genitourinary MDM Narrative Medical decision making narrative: Based on previous urine cultures will treat with Augmentin as group B strep is frequently isolated. Patient self swabbed for yeast and BV and the like to wait for results prior to treatment. Patient has history of UTI, BV and yeast. Pt well hydrated appearing, in no respiratory distress, hemodynamically stable. Recommend supportive care. The patient is stable at time of discharge the clinical impression was discussed and the patient was given the opportunity to ask questions, which were addressed as completely as possible given the information available at present. Anticipatory guidance and return to care precautions were discussed and the importance of primary care follow-up was stressed and encouraged. The patient voiced understanding of the plan, indications to return, and the need for follow-up. Exam findings show no acute concerns or changes Patient is appropriate for outpatient treatment and follow-up. Differential Diagnosis Differential diagnosis: Likely urinary tract infection, bacterial vaginosis, vaginitis and cystitis Medical Records Attestation: I reviewed the patient's medical records. Lab Data Attestation: I reviewed the patient's lab results. Labs: Lab Results 01/19/25 Range/Units 18:10 POC Urine Color Yellow POC Urine Clarity Clear POC Urine pH 6.0 POC Ur Specif [place] 1.015 POC Urine Protein Negative (Negative) POC Ur Glucose (UA) Negative (Negative) POC Urine Ketones Negative (Negative) POC Urine Blood Trace (Negative) POC Urine Nitrite Negative (Negative) POC Urine Bilirubin Negative (Negative) POC Urine Urobilinogen 0.2 POC U Leukocyte Esteras Trace (Negative) Discharge Plan Discharge Clinical Impression: Urinary tract infection Qualifiers: Urinary tract infection type: acute cystitis Hematuria presence: without hematuria Qualified Code(s): N30.00 - Acute cystitis without hematuria Patient Disposition: Home Condition: Stable Instructions: Urinary Tract Infection in Women (ED) Additional Instructions: We will send a urine culture to the lab, based on your symptoms and urine dip we will start treatment today. If culture comes back and bacteria is not susceptible to antibiotic, your prescription may change. Your symptoms should improve within a day of starting antibiotics, but you should finish all the antibiotic pills you get. Otherwise your infection might come back Continue with increased water intake. Take Tylenol or ibuprofen as needed for pain or fever. Follow-up with primary care provider for urine recheck or see ER visit if condition worsens with high fever, nausea, vomiting, severe back pain We also sent swabs off for BV and yeast. We will call you if either are positive Patient Language: Beninese Prescriptions: New amoxicillin-pot clavulanate 875-125 mg tablet 1 tablet PO Q12H 5 Days Qty: 10 0RF No Action escitalopram oxalate 10 mg tablet 20 mg PO DAILY Probiotic with Prebiotic 1 billion-250 cell-mg capsule PO buspirone 10 mg tablet 10 mg PO DAILY methylphenidate HCl 27 mg tablet extended release 24hr 27 mg PO DAILY Follow-up/Referrals: Michael,MD Perez [Primary Care Provider, Unknown] - 3 Days Time of Disposition: 18:40
[2025-01-19 18:05] VITALS: BP 125/66; PULSE 106; RESP 18; TEMP 36.9; O2SAT 100
[2025-01-19 18:22] LABS: EDUAAPPEAR Clear; EDUABILI Negative (Negative); EDUABLOOD Trace (Negative); EDUACOLOR1 Yellow; EDUAGLUCOSE Negative (Negative); EDUAKETONE Negative (Negative); EDUALEUKO Trace (Negative); EDUANITRATE Negative (Negative); EDUAPH 6.0; EDUAPROTEIN Negative (Negative); EDUASPGRAVITY 1.015; EDUAUROBILI 0.2
== END 2025-01-19 18:46 | disposition home or self-care (01) ==
PROVIDERS: Emergency Provider Nurse Practitioner Family; PCP Pediatrics
DX: N30.00 Acute cystitis without hematuria (principal)
CPT/HCPCS: 81003; 87070; 87077; 87086; 87147; 87186; 87798; 99213; G0463